=== PATIENT | female | born 1985 | race Caucasian/White ===

== ENCOUNTER 2023-01-20 21:33 | Emergency (ER) | payer BC | END 2023-01-20 22:28 | disposition home or self-care (01) | LOC: JD.ED 21:33 | DX: S09.90XA Unspecified injury of head, initial encounter (principal); Z88.8 Allergy status to other drugs, medicaments and biological substances; W10.8XXA Fall (on) (from) other stairs and steps, initial encounter | CPT/HCPCS: 70450; 70450-26; 99282; 99284 ==